=== PATIENT | male | born 1945 | race Caucasian/White ===

== ENCOUNTER 2021-03-05 15:05 | Emergency (ER) | payer OTHER, MEDICARE, SELFPAY ==
[2021-03-05 15:07] VITALS: BP 156/100; PULSE 88; RESP 14; TEMP 36.4; O2SAT 93; BMI 28.8
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
--- NOTE | 2021-03-05 15:26 | EKG12_ITS ---
Test Reason : DYSRHYTHMIA Blood Pressure : / mmHG Vent. Rate : 093 BPM Atrial Rate : 093 BPM P-R Int : 166 ms QRS Dur : 086 ms QT Int : 360 ms P-R-T Axes : 060 037 055 degrees QTc Int : 447 ms Normal sinus rhythm Normal ECG Confirmed by TALIB ROE, XU ([id number]), supervising film or videotape editor SABINE CHEN ([id number]) on 03/07/2021 11:47:28 AM Referred By: LOGAN Confirmed By:XU MAYERS MD
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
--- NOTE | 2021-03-05 15:35 | NURSING ---
NO OLD EKGS
[2021-03-05] MEDS: Ondansetron 4 MG/2 ML Vial IV (15:39)
[2021-03-05] MEDS: Morphine 4 MG/ML Syringe IV (15:39)
[2021-03-05 15:49] LABS: Absolute Lymphocyte Count 1.81 X10^3/uL (0.83-4.51); Absolute Neutrophil Count 5.3 X10^3/uL (2.0-7.7); Basophil# 0.03 X10^3/uL; Basophil% 0.3 % (0-1); Eosinophil# 0.52 X10^3/uL; Eosinophils% 5.9 % (0-5); Hematocrit 39.9 % (40-54); Hemoglobin 13.1 g/dL (13.0-16.5); Lymphocyte # 1.81 X10^3/ul (0.83-4.51); Lymphocyte % 20.7 % (19-41); Mean Corp Hgb Conc 32.8 g/dL (32-36); Mean Corpuscular Hgb 29.7 pg (27.0-32.0); Mean Corpuscular Volume 90.5 fL (80-94); Mean Platelet Vol. 9.5 fl (6.2-12.0); Monocyte% 11.4 % (0-10); NRBC Flagged by Analyzer 0 % (0-5); Neutrophil # 5.33 X10^3/uL (2.7-7.7); Neutrophil % 61.1 % (47-70); Platelet Count 265 K/mm3 (150-450); RBC Distribution Width CV 12.7 % (11.6-14.6); Red Blood Count 4.41 M/mm3 (4.6-6.2); White Blood Count 8.7 K/mm3 (4.4-11.0)
[2021-03-05 16:07] LABS: AST(SGOT) 20 U/L (15-37); Alanine Aminotransfer ALT/SGPT 35 U/L (16-61); Albumin, Serum 3.4 g/dL (3.2-5.0); Alkaline Phosphatase 95 U/L (45-117); Anion Gap 6 (5-15); BUN 21 mg/dL (7-18); BUN/Creat Ratio 22.6 RATIO (10-20); Bilirubin, Direct 0.15 mg/dL (0.00-0.30); Calcium,Total 9.1 mg/dL (8.5-10.1); Chloride 105 mmol/L (98-107); Creatinine, Serum 0.93 mg/dL (0.70-1.30); EST Glomerular Filtration Rate 84 mL/min (>60); Est Glom Filt Rate - Afr Amer 102 mL/min (>60); Estimated Creatinine Clearance 61.93 ml/min; Globulin 3.4 g/dL (2.2-4.2); Glucose 110 mg/dL (74-106); Potassium 4.1 mmol/L (3.5-5.1); Protein, Total 6.8 g/dL (6.4-8.2); Sodium Level 140 mmol/L (136-145)
[2021-03-05 17:29] VITALS: BP 135/75; PULSE 78; RESP 18; O2SAT 93
[2021-03-05 18:19] VITALS: BP 108/77; PULSE 62; RESP 15; O2SAT 98
== END 2021-03-05 18:20 | disposition home or self-care (01) ==
PROVIDERS: Emergency Provider Student in an Organized Health Care Education/Training Program; PCP Family Medicine
DX: S06.0X9A Concussion with loss of consciousness of unspecified duration, initial encounter (principal); S80.01XA Contusion of right knee, initial encounter; S20.212A Contusion of left front wall of thorax, initial encounter; V84.5XXA Driver of special agricultural vehicle injured in nontraffic accident, initial encounter; Y93.H9 Activity, other involving exterior property and land maintenance, building and construction; Y92.828 Other wilderness area as the place of occurrence of the external cause; Y99.0 Civilian activity done for income or pay
CPT/HCPCS: 70450; 70486; 71250; 72125; 74176; 80048; 80076; 85025; 93005; 96374; 96375; 99285; J2405

== ENCOUNTER 2021-03-06 18:53 | Emergency (ER) | payer OTHER, MEDICARE, SELFPAY ==
[2021-03-06 18:55] VITALS: BP 133/73; PULSE 98; RESP 16; TEMP 36.3; O2SAT 93; BMI 30.1
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
--- NOTE | 2021-03-06 19:28 | EKG12_ITS ---
Test Reason : PASSED OUT Blood Pressure : / mmHG Vent. Rate : 077 BPM Atrial Rate : 077 BPM P-R Int : 186 ms QRS Dur : 084 ms QT Int : 392 ms P-R-T Axes : 057 007 035 degrees QTc Int : 443 ms Normal sinus rhythm Normal ECG Confirmed by TALIB ROE, XU ([id number]), digital editor SABINE CHEN ([id number]) on 03/07/2021 11:46:35 AM Referred By: FOSTER Confirmed By:XU MAYERS MD
[2021-03-06] MEDS: 0.9% Normal Saline 1,000 ML 1000 ML IV (19:44)
--- NOTE | 2021-03-06 19:46 | EX.ED.DYSGE1 ---
HPI History of Present Illness Chief Complaint: Dizziness Narrative Narrative: Patient presenting with dizziness. He states that when he gets up to walk he feels like he is sweating. He feels lightheaded with this. He states he can only go short distances. Patient states he continues to have left rib pain since yesterday. I saw him personally yesterday and he had an accident where he was on a riding lawnmower which slid sideways down a hill towards his left and then when he hit the ditch he fell hitting his head and lose his consciousness. His blood work and imaging was normal yesterday he was given [place] for pain at home. Today he states he has not had a bowel movement at all. His last urination was at 5:30 AM. He states this is normal stream without discoloration or hematuria. It was not painful. Patient states that his abdomen is tender all over. He is not had any fever, chills, nausea, vomiting. His states that he is intermittently confused however he likely has a concussion from yesterday. He has not had any projectile vomiting. He denies any back pain. [facility] Medical History Hernia Home Medications hydrocodone-acetaminophen 1 tab PO Q6H PRN PRN 3 Days #12 tablet 03/05/21 [Rx Last Taken Unknown] Allergy/AdvReac Type Severity Reaction Status Date / Time No Known Allergies Allergy Verified 03/06/21 19:00 Surgical History History of rotator cuff surgery Social History Smoking Status: Never smoker ROS ROS ED Constitutional Constitutional ED: Reports sweats; Denies chills or fever(s) Eyes Eyes: Denies blurry vision or diplopia ENT ENT ED: Denies rhinorrhea or sore throat Cardiovascular Cardiovascular: Reports other Details: Left-sided rib pain ; Denies palpitations Respiratory/Chest Respiratory/Chest: Denies cough or dyspnea Gastrointestinal Gastrointestinal: Reports abdominal pain and constipation; Denies diarrhea, nausea or vomiting Genitourinary Genitourinary ED: Reports other Details: Decreased urine output ; Denies dysuria or hematuria Musculoskeletal Musculoskeletal: Denies arthralgias, back pain, myalgias or neck pain Integumentary Denies Abrasions or rash Neurologic Neurologic: Reports headache(s); Denies paresthesias EXAM Physical Exam Const Vital Signs: 03/06/21 18:55 03/06/21 19:01 03/06/21 20:51 Temperature 97.4 F L Temperature Source Oral Pulse Rate 98 98 Respiratory Rate 16 18 Respiratory Effort Normal Respiratory Pattern Normal Blood Pressure 133/73 H 135/67 H Blood Pressure Mean 93 89 Pulse Ox 93 96 Oxygen Delivery Method Room Air Room Air 03/06/21 21:35 03/06/21 22:02 Temperature Temperature Source Pulse Rate 97 95 Respiratory Rate 16 18 Respiratory Effort Respiratory Pattern Blood Pressure 116/66 132/72 H Blood Pressure Mean 82 92 Pulse Ox 96 96 Oxygen Delivery Method Room Air Positive well nourished General Appearance ED: NAD; Negative for pallor HEENT HEENT Narrative: Bruising around the left eye has progressed since yesterday and is now more diffuse around her left eye. Extraocular motion is still intact. No facial bone tenderness. No jaw malocclusion. No hemotympanum Eyes PERRL and EOMs intact bilaterally General Eye ED: Negative for pale conjunctiva Neck no lymphadenopathy and supple Cardio regular rate and regular rhythm GI Inspection: abdominal distention Auscultation: hypoactive bowel sounds Extremity normal to inspection Neuro oriented x3, CN's II-XII intact bilaterally and no sensory deficits noted Sensorium / Orientation: alert Motor Exam: strength 5/5 throughout Psych mental status grossly normal Skin General Skin Exam: Negative for jaundice or pallor MDM MDM MDM Narrative Medical decision making narrative: Patient presenting with increasing abdominal distention and generalized abdominal pain as well as decreased urinary output since this morning at 530 as well as no bowel movement. Patient seen yesterday and examined after a lawnmower fell on him. His CAT scans and lab work were normal yesterday. I obtained a repeat CT brain due to his dizziness and this was negative. I did not check orthostatic vital signs because it sounds as if he is orthostatic by history. I did obtain repeat blood work and the patient today has a leukocytosis of 13.9 which has changed from 8.7. Hemoglobin today is 10.5 and yesterday was 13.1. Patient was typed and screened. Creatinine is elevated at 1.5 today and was 0.03 yesterday. Patient was given IV fluids. Bladder scan was performed and showed only about 50 cc in the bladder. Patient unable to give a urine sample. I obtained a CT of the abdomen pelvis with IV contrast which shows concern for a grade 2 splenic laceration as well as a type III subcapsular hematoma of the spleen. There is also hemoperitoneum. There is blood in the [place] as well as behind the liver. I did review this with the radiologist who agreed that this was not present yesterday. Given that the patient had a lawnmower fall on him yesterday I do believe he qualifies for trauma evaluation. I discussed this with Dr. Perez at [facility] and he accepted transfer. At this point the patient was reevaluated and had some increasing pain and was given fentanyl 25 mcg IV. He was consented for transfer. Impression: 1. Grade 2 splenic laceration 2. Grade 3 subcapsular hematoma of the spleen 4. Hemoperitoneum 5. Acute kidney injury 6. Leukocytosis 7. Blood loss anemia Lab Data Attestation: I reviewed the patient's lab results. Labs: Laboratory Results - last 24 hr 03/06/21 03/06/21 03/06/21 19:40 19:40 19:58 WBC 13.9 H RBC 3.42 L Hgb 10.5 L Hct 31.0 L MCV 90.6 MCH 30.7 MCHC 33.9 RDW Std Deviation 42.9 RDW Coeff of [place] 13.0 Plt Count 266 MPV 10.0 Immature Gran % (Auto) 0.600 Neut % (Auto) 78.3 H Lymph % (Auto) 10.8 L [place] % (Auto) 10.2 H Eos % (Auto) 0.0 Baso % (Auto) 0.1 Absolute Neuts (auto) 10.9 H Absolute Lymphs (auto) 1.51 Nucleated RBC % 0 Sodium 134 L Potassium 4.7 Chloride 99 Carbon Dioxide 25.0 Anion Gap 10 BUN 31 H Creatinine 1.50 H Estim Creat Clear Calc 38.40 Est GFR (MDRD) Af Amer 59 L Est GFR (MDRD) Non-Af 48 L BUN/Creatinine Ratio 20.7 H Glucose 180 H Calcium 9.0 Total Bilirubin 0.60 Direct Bilirubin 0.17 AST 25 ALT 33 Alkaline Phosphatase 81 Total Protein 6.4 Albumin 3.1 L Globulin 3.3 Albumin/Globulin Ratio 0.9 Blood Type A POSITIVE Antibody Screen NEGATIVE Radiography Diagnostic Testing: Clinical Impression(s) from Imaging Studies Abdomen/Pelvis CT 03/06/21 19:28 IMPRESSION: 1. Type II laceration of the spleen with type III subcapsular hematoma. 2. Free fluid in density suggesting blood is seen in the bilateral subphrenic spaces and paracolic gutters. 3. Small subcapsular hematoma in the posterior left kidney. 4. No other major interval change. N.B. : The above Results were Read Back by Carlo Villegas DO to Sheldon Barrera DO, and understanding confirmed on 03/06/2021 21:15:17 (ET). Electronically Signed: Carlo Villegas DO at 21:16 EST Tel [phone], Service support , ADDENDUM: 03/06/212122 IMPRESSION: 1. Type II laceration of the spleen with type III subcapsular hematoma. 2. Free fluid in density suggesting blood is seen in the bilateral subphrenic spaces and paracolic gutters. 3. Small subcapsular hematoma in the posterior left kidney. 4. No other major interval change. N.B. : The above Results were Read Back by Carlo Villegas DO to Sheldon Barrera DO, and understanding confirmed on 03/06/2021 21:15:17 (ET). Electronically Signed: Carlo Villegas DO at 21:16 EST Tel [phone], Service support , Brain CT 03/06/21 19:28 IMPRESSION: No evidence of acute intracranial calvarial abnormality. There is no major interval change when compared to prior study. Electronically Signed: Carlo Villegas DO at 21:17 EST Tel [phone], Service support , Critical Care Time Critical care time (excluding procedures): 30-74 minutes (35 minutes), Discussing w/Patient &/or Family/Account Resolution Specialist, Discussing w/Consultants and Arranging Admission or Transfer Discharge Plan Triage Chief Complaint: Dizziness ED Provider: Sheldon Barrera Dx/Rx/DC Orders Prescriptions: No Action hydrocodone-acetaminophen 5-325 mg tablet 1 tab PO Q6H PRN PRN (Reason: Pain) 3 Days Qty: 12 RF: 0 Primary Care Provider: Richard Borden Referrals: Richard Borden MD [Primary Care Provider] - Disposition Disposition: Acute Care Hospital Discharge Location: [facility] Discharge Date/Time: 03/06/21 22:17
[2021-03-06 19:51] LABS: Absolute Lymphocyte Count 1.51 X10^3/uL (0.83-4.51); Absolute Neutrophil Count 10.9 X10^3/uL (2.0-7.7); Basophil# 0.02 X10^3/uL; Basophil% 0.1 % (0-1); Hemoglobin 10.5 g/dL (13.0-16.5); Lymphocyte # 1.51 X10^3/ul (0.83-4.51); Lymphocyte % 10.8 % (19-41); Mean Corp Hgb Conc 33.9 g/dL (32-36); Mean Corpuscular Hgb 30.7 pg (27.0-32.0); Mean Corpuscular Volume 90.6 fL (80-94); Monocyte# 1.42 X10^3/uL; Monocyte% 10.2 % (0-10); NRBC Flagged by Analyzer 0 % (0-5); Neutrophil # 10.88 X10^3/uL (2.7-7.7); Neutrophil % 78.3 % (47-70); Platelet Count 266 K/mm3 (150-450); RBC Distribution Width SD 42.9 fl (35.1-43.9); Red Blood Count 3.42 M/mm3 (4.6-6.2); White Blood Count 13.9 K/mm3 (4.4-11.0)
[2021-03-06 20:17] LABS: ALB/GLOB Ratio 0.9 RATIO (0.9-2.4); AST(SGOT) 25 U/L (15-37); Alanine Aminotransfer ALT/SGPT 33 U/L (16-61); Albumin, Serum 3.1 g/dL (3.2-5.0); Alkaline Phosphatase 81 U/L (45-117); Anion Gap 10 (5-15); BUN 31 mg/dL (7-18); BUN/Creat Ratio 20.7 RATIO (10-20); Bilirubin, Direct 0.17 mg/dL (0.00-0.30); Chloride 99 mmol/L (98-107); EST Glomerular Filtration Rate 48 mL/min (>60); Est Glom Filt Rate - Afr Amer 59 mL/min (>60); Globulin 3.3 g/dL (2.2-4.2); Glucose 180 mg/dL (74-106); Potassium 4.7 mmol/L (3.5-5.1); Protein, Total 6.4 g/dL (6.4-8.2); Sodium Level 134 mmol/L (136-145)
[2021-03-06] MEDS: 0.9% Normal Saline 1,000 ML 999 ML IV (20:50)
[2021-03-06 20:51] VITALS: BP 135/67; PULSE 98; RESP 18; O2SAT 96
--- NOTE | 2021-03-06 21:21 | ED.RN ---
CALLED FOR TRANSFER OF PATIENT TO [facility]. [facility] AND [facility] ARE CURRENTLY NOT ACCEPTING PATIENTS AT THIS TIME
[2021-03-06] MEDS: fentaNYL 100 MCG/2 ML Ampul 25 MCG IV (21:27)
--- NOTE | 2021-03-06 21:28 | ED.RN ---
[facility] CALLED FOR TRANSPORT THEY ARE WORKING ON OUTSOURCING TRANSFER
[2021-03-06 21:35] VITALS: BP 116/66; PULSE 97; RESP 16; O2SAT 96
[2021-03-06 22:02] VITALS: BP 132/72; PULSE 95; RESP 18; O2SAT 96
== END 2021-03-06 22:17 | disposition short-term general hospital (02) ==
PROVIDERS: Emergency Provider Student in an Organized Health Care Education/Training Program; PCP Family Medicine
DX: S36.039A Unspecified laceration of spleen, initial encounter (principal); S36.029A Unspecified contusion of spleen, initial encounter; S37.012A Minor contusion of left kidney, initial encounter; V84.9XXA Unspecified occupant of special agricultural vehicle injured in nontraffic accident, initial encounter; Y93.9 Activity, unspecified; Y92.9 Unspecified place or not applicable; Y99.0 Civilian activity done for income or pay; N17.9 Acute kidney failure, unspecified; D72.829 Elevated white blood cell count, unspecified; D50.0 Iron deficiency anemia secondary to blood loss (chronic)
CPT/HCPCS: 70450; 74177; 80053; 82248; 85025; 86850; 86900; 86901; 93005; 96361; 96374; 99285; J7030; Q9967